=== PATIENT | female | born 1985 | race Two or more races ===

== ENCOUNTER 2016-08-24 08:19 | Emergency (ER) | payer OTHER ==
[~2016-08-24] VITALS: Ht 162.6 cm; Wt 57.0 kg
[2016-08-24 12:34] VITALS: BP 134/81
[2016-08-26 05:21] LABS: CHLAMYDIA TRACHOMATIS NAA Negative (Negative); NEISSERIA GONORRHOEAE NAA Negative (Negative)
== END 2016-08-24 12:39 | disposition home or self-care (01) ==
LOC: ER 08:20
DX: N93.8 Other specified abnormal uterine and vaginal bleeding (principal); R10.30 Lower abdominal pain, unspecified; R03.0 Elevated blood-pressure reading, without diagnosis of hypertension
CPT/HCPCS: 76830; 76856; 81025; 87491; 87591; 99285